=== PATIENT | female | born 1995 | race African-American/Black ===

== ENCOUNTER → 2023-04-09 | Emergency (ER) | payer BC, SELFPAY ==
--- OUTSIDE RECORDS SUMMARY | 2023-04-09 13:16 | XMS REPORT | Continuity of Care Document ---
Author Name Unknown Address [address] [facility] [place], [place] [id number] [place] [address] thconnect Address [address] [facility] [place] [address] Care Team Providers Care Software Validation Engineer Name Role Phone SHERRY SHARP Primary Care Physician Unavail able [email or web address]_S Attending Clinician UnavailSHONDA Stallworth Attending Clinician Unavailable JOHNATHAN IVERSON Attending Clinician Unavailable GIANNA DALLAS Attending Clinician Unavail able Sherry Kelly Attending Clinician [email or web address]_S Admitting Clinician Unavailagustina dutta Payers Payer Name Policy Type Policy Number Effective Date Expirati on Date Source Problems Condition Name Condition Details Condition Category Status Onset Date Resolution Date Last Treatment Date Treating Clinician Comments Source Chlamydia Chlamydia Disease Active 04-25 00:00: 00 [facility] Well woman exam Well woman exam Disease Active 04-24 00:00: 00 [facility] BMI 25.0-25.9, adult BMI 25.0-25.9, adult Disease Active 04-24 00:00: 00 [facility] Encounter for contracept raúl management , unspecifie d type Encounter for contracept raúl management , unspecifie d type Disease Active 06-14 00:00: 00 [facility] Screening for STD (sexually transmitte d disease) Screening for STD (sexually transmitte d disease) Disease Active 11-27 00:00: 00 Overview: ICD10 Diagnosis Term Security Nurse Utility [facility] Allergies, Adverse Reactions, Alerts Allergy Name Allergy Type Status Severity Reaction(s) Onset Date Inactive Date Treating Clinician Comments Source NO KNOWN ALLERGIE S Drug Class Active [facility] Social History Social Habit Start Date Stop Date Quantity Comments Source [facility] intake 2018-06-19 00:00:00 2018-06-19 00:00:00 [facility] Smoking Status Start Date Stop Date Source Never smoker [facility] Medications Ordered Medication Name Filled Medication Name Start Date Stop Date Current Medication? Ordering Clinician Indication Dosage Frequency Signature (SIG) Comments Components Source levonorgest rel-ethinyl estradiol (LARISSIA) 0.1-20 mg-mcg per tablet 06-19 00:00: 00 Yes [id number] 1{tbl} Take 1 tablet by mouth daily. [facility] Encounters Start Date/Time End Date/Time Encounter Type Admission Type Attending Clinicians Care Facility Care Department Encounter ID Source 2023-01-31 00:00:00 2023-01-31 00:00:00 Outpatient [email or web address] [email or web address]_S [facility] [id number] [facility] 2021-08-09 08:00:00 2021-08-09 08:00:[address] [facility] [id number] [facility] 2021-08-09 08:00:00 2021-08-09 08:00:[address] [facility] [id number] [facility] 2021-02-01 06:59:20 2021-02-01 09:54:04 Outpatient JOHNATHAN IVERSON Lisbeth Lisbeth [id number] [facility] 2021-01-19 00:00:00 2021-01-19 00:00:00 Outpatient PROSPER Lisbeth [id number] [facility] 2020-11-23 11:40:00 2020-11-23 11:40:[address] [facility] [id number] [facility] 2019-07-07 00:00:00 2019-07-07 00:00:00 Sherry Saba [facility] [id number] [facility]
[2023-04-09 15:24] LABS: Barbiturates NEGATIVE (NEGATIVE); Benzodiazepines NEGATIVE (NEGATIVE); Cocaine NEGATIVE (NEGATIVE); METHAMPHETAM NEGATIVE (NEGATIVE); Methadone NEGATIVE (NEGATIVE); Opiates NEGATIVE (NEGATIVE); Phencyclidine NEGATIVE (NEGATIVE); THC Cannibis NEGATIVE (NEGATIVE)
--- NOTE | 2023-04-09 15:34 | ER ---
Nurse's Notes [facility] Name: Angeline Meneses Age: 27 yrs Sex: Female : 1995 Arrival Date: 04/09/2023 Time: 13:14 Bed DIS7 Private MD: Diagnosis: Paresthesia of skin Presentation: 04/09 13:22 Chief complaint: Patient states: "MY LEFT HAND GOT TINGLY AND MY VISION WAS BLURRY iw AFTER I TOOK A NAIL SALON CARD OFF MY WINDSHIELD AT [facility] AND I THOUGHT WHAT IF SOMEONE PUT SOMETHING ON THAT CARD". Coronavirus screen: At this time, the client does not indicate any symptoms associated with coronavirus-19. Ebola Screen: No symptoms or risks identified at this time. Initial Sepsis Screen: Does the patient meet any 2 criteria? No. Patient's initial sepsis screen is negative. Does the patient have a suspected source of infection? No. Patient's initial sepsis screen is negative. Risk Assessment: Do you want to hurt yourself or someone else? Patient reports no desire to harm self or others. Onset of symptoms is unknown. 13:22 Method Of Arrival: Ambulatory iw 13:22 Acuity: ZEUS 4 iw Triage Assessment: 13:24 General: Appears distressed, Behavior is cooperative, appropriate for age, agitated, iw anxious. Pain: Denies pain. Respiratory: Reports shortness of breath Onset: The symptoms/episode began/occurred just prior to arrival, the patient reports symptoms have resolved. Historical: - Allergies: 13:24 No Known Allergies; iw - Home Meds: 13:24 None [Active]; iw - PMHx: 13:24 None; iw - Immunization history:: Adult Immunizations up to date. - Social history:: Smoking status: Patient denies any tobacco usage or history of. Assessment: 17:15 General: MD discussed test results with pt in discharge chair. Pt with no questions. Pt kb3 left ambulatory without distress. feeling well. Vital Signs: 13:22 BP 154 / 100; Pulse 100; Resp 24; Temp 97.6; Pulse Ox 100% ; Weight 65.77 kg; Height 5 iw ft. 2 in. ; 13:22 Body Mass Index 26.52 (65.77 kg, 157.48 cm) iw ED Course: 13:15 Patient arrived in ED. rg4 13:23 Triage completed. iw 13:24 Arm band placed on. iw 14:24 Haylee Jane MD is Attending Physician. gb1 14:58 Urine Drug Screen Sent. bc6 17:15 No provider procedures requiring assistance completed. Patient did not have IV access kb3 during this emergency room visit. Administered Medications: No medications were administered Outcome: 15:33 Discharge ordered by . gb1 17:14 Patient left the ED. em1 17:15 Discharged to home ambulatory, kb3 17:15 Condition: stable 17:15 Discharge instructions given to patient, Instructed on discharge instructions, follow up and referral plans. Demonstrated understanding of instructions, Signatures: Jennifer Early, RN Basil Patton em1 Sandra Donato rg4 Jing Pedraza, SABINE RN 3 Debo Almodovar bc6 aHylee Jnae MD MD gb1
--- NOTE | 2023-04-09 15:34 | EDPHYS ---
Physician Documentation [facility] Name: Angeline Meneses Age: 27 yrs Sex: Female : 1995 Arrival Date: 04/09/2023 Time: 13:14 Bed DIS7 Private MD: ED Physician Haylee Jane HPI: 04/09 15:33 This 27 yrs old Black Female presents to ER via Ambulatory with complaints of Breathing gb1 Difficulty, Blurred Vision. 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 Within 15 seconds her fingers started to tingle and her left arm started to tingle as well. She drove to [employer] which was right across the parking lot and then her left arm felt very very heavy. She states that at that time she became very anxious and became short of breath. She has no other medical problems and takes no medications. At this time she denies any shortness of breath or chest pain.. Historical: - Allergies: 13:24 No Known Allergies; iw - Home Meds: 13:24 None [Active]; iw - PMHx: 13:24 None; iw - Immunization history:: Adult Immunizations up to date. - Social history:: Smoking status: Patient denies any tobacco usage or history of. ROS: 14:45 Constitutional: Negative for fever, chills, and weight loss, Eyes: Negative for injury, gb1 pain, redness, and discharge, ENT: Negative for injury, pain, and discharge, Neck: Negative for injury, pain, and swelling, Respiratory: Negative for shortness of breath, cough, wheezing, and pleuritic chest pain, Abdomen/GI: Negative for abdominal pain, nausea, vomiting, diarrhea, and constipation, Back: Negative for injury and pain, MS/Extremity: Negative for injury and deformity, Skin: Negative for injury, rash, and discoloration, Neuro: Negative for headache, weakness, numbness, tingling, and seizure, 14:45 Cardiovascular: Positive for palpitations, 14:45 MS/extremity: Positive for tingling, Exam: 14:47 Constitutional: This is a well developed, well nourished patient who is awake, alert, gb1 and in no acute distress. Head/Face: Normocephalic, atraumatic. Eyes: Pupils equal round and reactive to light, extra-ocular motions intact. Lids and lashes normal. Conjunctiva and sclera are non-icteric and not injected. Cornea within normal limits. Periorbital areas with no swelling, redness, or edema. ENT: Nares patent. No nasal discharge, no septal abnormalities noted. Tympanic membranes are normal and external auditory canals are clear. Oropharynx with no redness, swelling, or masses, exudates, or evidence of obstruction, uvula midline. Mucous membranes moist. Neck: Trachea midline, no thyromegaly or masses palpated, and no cervical lymphadenopathy. Supple, full range of motion without nuchal rigidity, or vertebral point tenderness. No Meningismus. Chest/axilla: Normal chest wall appearance and motion. Nontender with no deformity. No lesions are appreciated. Respiratory: Lungs have equal breath sounds bilaterally, clear to auscultation and percussion. No rales, rhonchi or wheezes noted. No increased work of breathing, no retractions or nasal flaring. Abdomen/GI: Soft, non-tender, with normal bowel sounds. No distension or tympany. No guarding or rebound. No evidence of tenderness throughout. Back: No spinal tenderness. No costovertebral tenderness. Full range of motion. MS/ Extremity: Pulses equal, no cyanosis. Neurovascular intact. Full, normal range of motion. Neuro: Awake and alert, GCS 15, oriented to person, place, time, and situation. Cranial nerves II-XII grossly intact. Motor strength 5/5 in all extremities. Sensory grossly intact. Cerebellar exam normal. Normal gait. Psych: Awake, alert, with orientation to person, place and time. Behavior, mood, and affect are within normal limits. 14:47 Cardiovascular: Tachycardic rate and rhythm with a normal S1 and S2. No gallops, murmurs, or rubs. Normal PMI, no JVD. No pulse deficits. Vital Signs: 13:22 BP 154 / 100; Pulse 100; Resp 24; Temp 97.6; Pulse Ox 100% ; Weight 65.77 kg; Height 5 iw ft. 2 in. ; 13:22 Body Mass Index 26.52 (65.77 kg, 157.48 cm) iw MDM: 14:24 Patient medically screened. gb1 14:48 Differential diagnosis: I would consider the symptoms the patient experienced gb1 consistent with a toxic exposure to fentanyl. I doubt trauma or wrist drop or any other left upper extremity abnormality to include dislocation or fracture. There is no trauma reported. 15:33 Data reviewed: lab test result(s), urine drug screen. gb1 15:33 ED course: Patient's urinary culture was negative and she is back to her normal gb1 baseline. At this time she will be discharged home with explicit return precautions. The patient is awake alert and is clinically improved since ED arrival. I will give her explicit return precautions to which he is compliant with prior discharge home today.. 04/09 14:42 Order name: Urine Drug Screen; Complete Time: 15:32 gb1 Administered Medications: No medications were administered Disposition Summary: 04/09/23 15:33 Discharge Ordered Notes: Location: Home gb1 Problem: new gb1 Symptoms: are resolved gb1 Condition: Stable gb1 Diagnosis - Paresthesia of skin gb1 Followup: gb1 - With: Private Physician - When: - Reason: If symptoms return Discharge Instructions: - Discharge Summary Sheet gb1 - Paresthesia gb1 Forms: - Medication Reconciliation Form gb1 - Thank You Letter gb1 - Antibiotic Education gb1 - Prescription Opioid Use gb1 - Patient Portal Instructions gb1 - Leadership Thank You Letter gb1 Signatures: Dispatcher [employer] Jennifer Guerrero, SABINE RN Haylee Hou MD MD gb1
[2023-04-09 17:46] VITALS: BP 154/100; TEMP 97.6; O2SAT 100
== END ==
LOC: ER 13:14
DX: R20.2 Paresthesia of skin (principal); R00.2 Palpitations
CPT/HCPCS: 80307; 99283